=== PATIENT | male | born 1970 | race American Indian/Alaskan Native ===

== ENCOUNTER 2017-08-22 01:13 | Emergency (ER) | payer OTHER ==
[2017-08-22] MEDS ORDERED: NACL 0.9% 1000 ML 1,000 ML ONE (01:27)
[2017-08-22] MEDS ORDERED: NACL 0.9% 1000 ML 2,000 ML IV ONE (01:30)
--- NOTE | 2017-08-22 02:53 | Emergency Department Report ---
ED CPR HPI - General Chief Complaint: Cardiac Arrest/CPR Stated Complaint: CARDIAC ARREST Time Seen by Provider: 08/22/17 02:52 Source: family, EMS Mode of arrival: Stretcher Limitations: No Limitations - History of Present Illness Initial Comments: 47 YO MALE WITH TYPE 2 DM ,CAME HOME TOLD HIS HE WAS NOT FEELING WELL. HE TOOK HIS INSULIN AND WENT TO HIS ROOM . HE SAT ON THE SIDE OF THE BED AND THEN SLID OFF TO BECOME UNRESPONSIVE. HIS COULD NTO ROUSE HIM THUS SE CALLED 911. 911 WAS CALLED AND THEY ARRIVED TO FIND PT BARELY BREATHING. PT WAS INTUBATED AND TRANSFERRED TO THE AMBULANCE WHERE HE LOST HIS VITAL SIGNS. CPR BEGUN AND ACLS PROTOCAL FOLLOWED UNTIL PT TURN OVER TO US WHERE WE CONTINUED CPR ACCORDING TO ACLS PROTOCAL. PT NEVER REGAIN SPONTANEOUS RESPIRATIONS OR SPONTANEOUS MOVEMENTS. HIS WAS AT THE DOOR LOOKING AT THE CPR BEING PERFORMED. HE WAS GIVEN MULTIPLE ROUND OF EPINEPHRINE , 50 MG OF AMIODARONE BUT THIS WE WE UNABLE TO RESTORE LIFE. PT SAW HIS DOCTOR 2 DAYS PRIOR FOR RIGHT KNEE PAIN AND SWELLING. HE COULD HARDLY WALKED BECAUSE OF THE PAIN. HE WAS TOLD BY HIS DOCTOR THAT HE HAD ARTHRITIS. Complaint: stopped breathing (WHEN TRANSPORTED INTO THE AMBULANCE), collapsed during rest Place: home - Related Data Allergies Allergy/AdvReac Type Severity Reaction Status Date / Time No Known Allergies Allergy Unverified 08/22/17 01:41 ED Review of Systems ROS: Stated complaint: CARDIAC ARREST Other details as noted in HPI Comment: FROM Constitutional: denies: chills, fever Eyes: denies: eye pain, eye discharge, vision change ENT: denies: ear pain, throat pain Respiratory: denies: cough, shortness of breath, wheezing Cardiovascular: denies: chest pain, palpitations Endocrine: no symptoms reported Gastrointestinal: denies: abdominal pain, nausea, diarrhea Genitourinary: denies: urgency, dysuria Musculoskeletal: joint swelling (RIGHT KNEE PAIN AND SWELLING AND HOPPING BECAUSE OF PAIN), arthralgia. denies: back pain Skin: denies: rash, lesions Neurological: denies: headache, weakness, paresthesias Psychiatric: denies: anxiety, depression Hematological/Lymphatic: denies: easy bleeding, easy bruising ED Past Medical Hx - Past Medical History Previous Medical History?: Yes Hx Diabetes: Yes (INSULIN DEPENDENT) ED Physical Exam - General Limitations: No Limitations General appearance: obese - Head Head exam: Present: atraumatic, normocephalic - Eye Eye exam: Present: other (FIXED AND DILATED PUPILS) - ENT ENT exam: Present: mucous membranes moist, other (INTUBATED) - Neck Neck exam: Present: full ROM - Respiratory Respiratory exam: Present: normal lung sounds bilaterally - Cardiovascular Cardiovascular Exam: Present: other (ASYSTOLE) - GI/Abdominal GI/Abdominal exam: Present: soft - Rectal Rectal exam: Present: deferred - Extremities Exam Extremities exam: Present: other (RITH KNEE SWOLLEN,RIGHT CALF SWOLLEN GREATER THTN THE LEFT, NOTICABLY SO) - Skin Skin exam: Present: warm ED Medical Decision Making - Medical Decision Making WITH H/O RIGHT LEG PROBLEM AND KNEE PAIN AND RIGHT CALF LARGER THAN THE LEFT. IT IS MY CLINICAL JUDGMENT THAT HE OF MASSIVE PULMONARY EMBOLI Critical care attestation.: If time is entered above; I have spent that time in minutes in the direct care of this critically ill patient, excluding procedure time. ED Disposition Clinical Impression: Cardiac arrest Respiratory failure Qualifiers: Chronicity: acute Respiratory failure complication: unspecified whether with hypoxia or hypercapnia Qualified Code(s): J96.00 - Acute respiratory failure, unspecified whether with hypoxia or hypercapnia Pulmonary embolism Qualifiers: Pulmonary embolism type: other Chronicity: unspecified Disposition: DC-20 Is pt being admited?: No Does the pt Need Aspirin: No Condition: Stable Referrals: DAYANA PRADHAN MD [Primary Care Provider] - 3-5 Days Time of Disposition: 02:09
[2017-08-22] MEDS ORDERED: CORDARONE IV ONE (14:40)
[2017-08-22] MEDS ORDERED: ADRENALIN ONE (14:40)
== END 2017-08-22 08:55 ==
LOC: ED 01:13
DX: I46.9 Cardiac arrest, cause unspecified (principal)
CPT/HCPCS: 92950; 99285; J0171; J0282; J7030